=== PATIENT | male | born 1980 | race Asian ===

== ENCOUNTER 2018-08-30 01:57 | Emergency (ER) | payer OTHER ==
[~2018-08-30] VITALS: Ht 170.2 cm; Wt 63.6 kg
[~2018-08-30 01:57] MED LIST: NOCURR
[2018-08-30] MEDS ORDERED: SODIUM BICARBONATE [ADULT] 8.4% 50 MEQ/50 ML SYRINGE IVP ONE (01:59)
[2018-08-30] MEDS ORDERED: DEXTROSE 50%-WATER 25 GM/50 ML SYRINGE IVP ONE ×3 (01:59→02:14)
[2018-08-30] MEDS ORDERED: EPINEPHrine 1:10,000 [1 MG/10 ML] SYRINGE IVP ONE ×2 (01:59)
[2018-08-30 02:14] VITALS: BP 0/0
[2018-08-30] MEDS: DEXTROSE 50%-WATER 25 GM/50 ML SYRINGE IVP ONE (02:34)
[2018-08-30 03:44] LABS: GLUCOSE,POINT OF CARE 120 MG/DL (70-110)
[2018-08-30 03:44] LABS: GLUCOSE,POINT OF CARE 39 MG/DL (70-110)
[2018-08-30] MEDS ORDERED: VECURONIUM BROMIDE 10 MG/VIAL ONE (17:46)
[2018-08-30] MEDS ORDERED: ETOMIDATE 2 MG/ML 10 ML VIAL ONE (17:46)
== END 2018-08-30 07:29 | disposition expired ==
LOC: EMS 01:58
DX: I46.9 Cardiac arrest, cause unspecified (principal); F15.10 Other stimulant abuse, uncomplicated; I10 Essential (primary) hypertension; F11.90 Opioid use, unspecified, uncomplicated
CPT/HCPCS: 31500; 82962; 92950; 93005; 96374; 99291; J0171; J3490 ×3; 96375